=== PATIENT | female | born 1955 | race Caucasian/White ===

== ENCOUNTER → 2017-02-08 | Outpatient (CLI) | payer OTHER ==
[2017-02-08 15:18] LABS: ABSOLUTE BASOPHILS # (AUTO) 0.1 10^3/uL (0.0-0.2); ABSOLUTE EOSINOPHILS # (AUTO) 0.1 10^3/uL (0.0-0.6); ABSOLUTE LYMPHOCYTES (AUTO) 3.2 10^3/uL (0.5-4.7); ABSOLUTE MONOCYTES (AUTO) 0.7 10^3/uL (0.1-1.4); ABSOLUTE NEUT (AUTO) 9.5 10^3/uL (1.7-8.2); BASOPHILS % (AUTO) 0.7 % (0-2); EOSINOPHILS % (AUTO) 0.8 % (0-6); HEMOGLOBIN 14.1 g/dL (12.0-15.5); HGB HCT DIFFERENCE 2.3; LYMPHOCYTES % (AUTO) 23.2 % (13-45); MEAN CORPUSCULAR HEMOGLOBIN 31.8 pg (27.0-33.4); MEAN CORPUSCULAR HGB CONC 35.1 g/dL (32.0-36.0); MEAN CORPUSCULAR VOLUME 91 fl (80-97); RED BLOOD COUNT 4.42 10^6/uL (3.72-5.28); RED CELL DISTRIBUTION WIDTH 13.9 % (11.5-14.0); SEGMENTED NEUTROPHILS % (AUTO) 70.3 % (42-78); WHITE BLOOD COUNT 13.6 10^3/uL (4.0-10.5)
== END ==
LOC: OD 14:33
PROVIDERS: ATTEND Family Medicine
DX: D72.829 Elevated white blood cell count, unspecified (principal); Z01.818 Encounter for other preprocedural examination
CPT/HCPCS: 36415; 71020; 85025

== ENCOUNTER 2017-02-14 06:40 | Inpatient (IN) | payer OTHER ==
[2017-02-03 13:32] LABS: HEMATOCRIT 39.9 % (36.0-47.0); HGB HCT DIFFERENCE 2.1; MEAN CORPUSCULAR HEMOGLOBIN 31.4 pg (27.0-33.4); MEAN CORPUSCULAR HGB CONC 35.1 g/dL (32.0-36.0); MEAN CORPUSCULAR VOLUME 90 fl (80-97); RED BLOOD COUNT 4.46 10^6/uL (3.72-5.28); RED CELL DISTRIBUTION WIDTH 13.5 % (11.5-14.0); WHITE BLOOD COUNT 13.5 10^3/uL (4.0-10.5)
[2017-02-03 13:38] LABS: AMORPHOUS SEDIMENT,URINE TRACE /HPF; APPEARANCE,URINE SLIGHTLY-CLOUDY; BILIRUBIN,URINE NEGATIVE (NEGATIVE); GLUCOSE, URINE NEGATIVE (NEGATIVE); KETONES,URINE NEGATIVE (NEGATIVE); LEUKOCYTE ESTERASE,URINE NEGATIVE (NEGATIVE); NITRITE,URINE NEGATIVE (NEGATIVE); PROTEIN,URINE NEGATIVE (NEGATIVE); URINE SPECIFIC GRAVITY 1.012; UROBILINOGEN,URINE NEGATIVE mg/dL (<2.0)
[2017-02-03 13:50] LABS: BLOOD UREA NITROGEN 24 mg/dL (7-20); CALCIUM 9.8 mg/dL (8.4-10.2); CREATININE RESULT 0.81 mg/dL (0.52-1.25); GLUCOSE 104 mg/dL (75-110)
[2017-02-03 13:51] LABS: ANION GAP 16 (5-19); CARBON DIOXIDE 25 mmol/L (22-30); CHLORIDE 101 mmol/L (98-107); POTASSIUM 4.1 mmol/L (3.6-5.0); SODIUM 141.6 mmol/L (137-145)
[~2017-02-14 06:40] MED LIST: LACTATED RINGERS 1000 ML IV PRN; LANSOPRAZOLE 15 MG TAB.RAP.DR PO PRN; LIDOCAINE 0.5% INJ-PF (5 MG/ML) 50 ML SDV SUBCUT PRN; OXYCODONE HCL SR 10 MG TABLET PO PRN; SCOPOLAMINE HYDROBROMIDE 1.5 MG PATCH.TD72 TOP PRN; VANCOMYCIN HCL 1,000 MG in DEXTROSE 5%-WATER 250 ML IV PRN
[2017-02-14] MEDS ORDERED: CEFAZOLIN INJ 1 GM VIAL ONE (06:48)
[2017-02-14] MEDS: BUPIVACAINE INJ/PF LIPOSOME/PF 266 MG/20 ML SDV ONE ×2 (07:41→09:48)
[2017-02-14] MEDS: THROMBIN (BOVINE) 5000 UNIT EPITAXIS KIT ONE ×2 (07:43→09:48)
[2017-02-14] MEDS: THROMBIN (BOVINE) TOPICAL 20000 UNIT VIAL ONE ×2 (07:44→09:48)
[2017-02-14] MEDS ORDERED: MIDAZOLAM 2 MG/2 ML INJ ONE (07:52)
[2017-02-14] MEDS ORDERED: PROPOFOL INJ 200 MG/20 ML VIAL IV ONE (07:52)
[2017-02-14] MEDS ORDERED: TRANEXAMIC ACID INJ/PF 1,000 MG/10 ML SDV IV ONE ×2 (07:52→13:00)
[2017-02-14] MEDS ORDERED: FENTANYL CITRATE INJ/PF 100 MCG/2 ML AMPUL ONE (07:52)
[2017-02-14] MEDS: IBUPROFEN 800 MG/NS 250 ML IV PRN ×4 (09:00→18:00)
[2017-02-14] MEDS ORDERED: MORPHINE SULFATE 10 MG/ML INJ IV PRN ×3 (09:44→10:31)
[2017-02-14] MEDS ORDERED: FENTANYL CITRATE INJ/PF 100 MCG/2 ML AMPUL IV PRN ×3 (09:44)
[2017-02-14] MEDS ORDERED: DIPHENHYDRAMINE HCL 50 MG/ML VIAL IV PRN ×2 (09:44→10:31)
[2017-02-14] MEDS ORDERED: PROMETHAZINE HCL INJ 25 MG/1 ML VIAL IV PRN (09:44)
[2017-02-14] MEDS ORDERED: GABAPENTIN 300 MG CAPSULE PO PRN (10:29)
[2017-02-14] MEDS ORDERED: METAXALONE 800 MG TABLET PO PRN (10:29)
[2017-02-14] MEDS ORDERED: MAG HYDROX/AL HYDROX/SIMETH SUSP 30 ML UDCUP PO PRN (10:31)
[2017-02-14] MEDS ORDERED: MORPHINE SULFATE 10 MG/ML INJ IM PRN (10:31)
[2017-02-14] MEDS ORDERED: ZOLPIDEM TARTRATE 5 MG TABLET PO PRN (10:31)
[2017-02-14] MEDS ORDERED: ONDANSETRON HCL INJ/PF 4 MG/2 ML SDV IV PRN (10:31)
[2017-02-14] MEDS ORDERED: ACETAMINOPHEN 325 MG TABLET PO PRN (10:31)
--- NOTE | 2017-02-14 10:36 | Operative Report ---
Operative Report DATE OF SURGERY: 02/14/17 PREOPERATIVE DIAGNOSIS: Right knee arthritis OPERATION: Right knee arthroplasty SURGEON: MIMI CATALAN ANESTHESIA: Spinal TISSUE REMOVED OR ALTERED: Bone to pathology ESTIMATED BLOOD LOSS: 100 PROCEDURE: Implants used: Femur: Abbiiker hallielon #6 CR femur Tibia:, 5 tibia Tibial liner:, 9 mm CS insert Patella:, 35 mm oval patella Procedure with the patient supine on the operating table the right the limb is prepped and draped in a sterile fashion. The limb was elevated for exsanguination and the tourniquet inflated to 280 torr. A standard midline median parapatellar approach the knee is taken. Access is gained to the femoral canal through the intercondylar notch. Intramedullary alignment instrumentation used to resect 10 mm of distal femur in 5 of valgus. Sizing guide indicated a size C6 femur. Appropriate cutting jig is then used to fashion anterior posterior and chamfer cuts. A trial reduction femurs performed and this is judged to be adequate. Attention was next turned to the tibia. Using an extra medullary alignment system 9 millimeters was resected off the lateral tibial plateau. This is sized to a size 5 tibia. A trial reduction was now performed with a 6 femur and a. 5 tibia using a 9 millimeters spacer. It is full extension and central patellofemoral tracking. The articular surface the patella was next resected using an oscillating saw. All trial implants were removed. Polymethylmethacrylate is mixed and used to cement the above implants in place. On adequate curing the cement excess cement was removed the tourniquet was deflated hemostasis obtained the wound is then closed in layers using interrupted Vicryl followed by kirti. A sterile compressive dressing was applied and the patient returned to recovery room in satisfactory condition.
[2017-02-14] MEDS ORDERED: INSULIN LISPRO 100 UNIT/ML 3 ML VIAL SUBCUT PRN (11:34)
[2017-02-14] MEDS ORDERED: GLUCAGON,HUMAN RECOMB 1 MG INJ IM PRN (11:34)
[2017-02-14] MEDS ORDERED: DEXTROSE 50%-WATER SYRINGE 12.5 GM/25 ML DOSE IV PRN (11:34)
[2017-02-14] MEDS ORDERED: DEXTROSE 40% GEL 15 GM TUBE X 2 PO PRN (11:34)
[2017-02-14] MEDS ORDERED: DEXTROSE 50%-WATER SYRINGE 25 GM/50 ML DOSE IV PRN (11:34)
[2017-02-14] MEDS ORDERED: DEXTROSE 40% GEL 15 GM TUBE PO PRN (11:34)
[2017-02-14] MEDS ORDERED: PHENYLEPHRINE HCL INJ/PF 10 MG/1 ML SDV ONE (11:51)
[2017-02-14] MEDS ORDERED: LIDOCAINE 2% INJ-PF (20 MG/ML) 10 ML AMPUL ONE (11:51)
[2017-02-14] MEDS: OXYCODONE HCL IR 5 MG TABLET PO PRN (15:08)
[2017-02-14] MEDS: GLYCOPYRROLATE 1 MG TABLET PO SCH (16:08)
[2017-02-14] MEDS: MORPHINE SULFATE 10 MG/ML INJ IV PRN ×3 (16:08→23:09)
[2017-02-14] MEDS: METFORMIN HCL 500 MG TABLET PO SCH (16:08)
[2017-02-14] MEDS: SENNOSIDES/DOCUSATE 8.6-50 MG 1 EACH TABLET PO SCH (17:53)
[2017-02-14] MEDS ORDERED: IBUPROFEN 800 MG in NORMAL SALINE 250 ML IV SCH (18:00)
[2017-02-14] MEDS ORDERED: LORCASERIN HCL 10 MG PO SCH (18:00)
[2017-02-14] MEDS: IBUPROFEN 800 MG in NORMAL SALINE 250 ML IV SCH (19:37)
[2017-02-14] MEDS ORDERED: VANCOMYCIN HCL 1,000 MG in DEXTROSE 5%-WATER 250 ML IV ONE (22:00)
[2017-02-14] MEDS: OXYCODONE HCL SR 10 MG TABLET PO SCH (23:08)
[2017-02-14] MEDS: RIVAROXABAN 10 MG TABLET PO SCH (23:08)
[2017-02-15] MEDS: IBUPROFEN 800 MG in NORMAL SALINE 250 ML IV SCH ×3 (02:00→17:02)
[2017-02-15] MEDS: OXYCODONE HCL IR 5 MG TABLET PO PRN ×3 (02:11→16:59)
[2017-02-15] MEDS: LEVOTHYROXINE SODIUM 0.05 MG TABLET PO SCH (05:29)
[2017-02-15] MEDS: LANSOPRAZOLE 30 MG TAB.RAP.DR PO SCH (05:30)
[2017-02-15 05:37] LABS: HEMATOCRIT 32.4 % (36.0-47.0); HEMOGLOBIN 11.6 g/dL (12.0-15.5); HGB HCT DIFFERENCE 2.4; MEAN CORPUSCULAR HEMOGLOBIN 32.3 pg (27.0-33.4); MEAN CORPUSCULAR HGB CONC 35.9 g/dL (32.0-36.0); MEAN CORPUSCULAR VOLUME 90 fl (80-97); RED BLOOD COUNT 3.61 10^6/uL (3.72-5.28); RED CELL DISTRIBUTION WIDTH 14.3 % (11.5-14.0); WHITE BLOOD COUNT 10.5 10^3/uL (4.0-10.5)
[2017-02-15 05:39] LABS: ANION GAP 7 (5-19); BLOOD UREA NITROGEN 12 mg/dL (7-20); CALCIUM 8.3 mg/dL (8.4-10.2); CARBON DIOXIDE 25 mmol/L (22-30); CHLORIDE 99 mmol/L (98-107); CREATININE RESULT 0.63 mg/dL (0.52-1.25); GLUCOSE 140 mg/dL (75-110); SODIUM 131.2 mmol/L (137-145)
--- NOTE | 2017-02-15 06:51 | PDOC PROGRESS REPORT ---
Subjective Progress Note for:: 02/15/17 Subjective:: Patient complaining of nausea Physical Exam Vital Signs: Temp Pulse Resp BP Pulse Ox 37.3 C 78 17 141/60 H 97 02/15/17 04:00 02/15/17 04:00 02/15/17 04:00 02/15/17 04:00 02/15/17 04:00 Intake & Output 02/13/17 02/14/17 02/15/17 06:59 06:59 06:59 Intake Total 8128 Output Total 4140 Balance 3988 Weight 87.7 kg General appearance: PRESENT: no acute distress Head exam: PRESENT: normocephalic Eye exam: PRESENT: EOMI Respiratory exam: PRESENT: unlabored Cardiovascular exam: PRESENT: RRR Vascular exam: PRESENT: normal capillary refill GI/Abdominal exam: PRESENT: soft Rectal exam: PRESENT: deferred Extremities exam: PRESENT: other - Lower extremity dressing clean dry and intact. Distal neurovascular examinations intact. Neurological exam: PRESENT: alert, awake, oriented to person, oriented to place , oriented to time, oriented to situation. ABSENT: motor sensory deficit Psychiatric exam: PRESENT: appropriate affect, normal mood. ABSENT: homicidal ideation, suicidal ideation Skin exam: PRESENT: dry, intact, warm. ABSENT: cyanosis, rash Results Laboratory Results: 02/15/17 05:00 02/15/17 05:00 02/15/17 02/15/17 05:00 05:00 WBC 10.5 RBC 3.61 L Hgb 11.6 L Hct 32.4 L MCV 90 MCH 32.3 MCHC 35.9 RDW 14.3 H Plt Count 253 Sodium 131.2 L Potassium 4.0 Chloride 99 Carbon Dioxide 25 Anion Gap 7 BUN 12 Creatinine 0.63 Est GFR ( Amer) > 60 Est GFR (Non-Af Amer) > 60 Glucose 140 H Calcium 8.3 L Impressions: Knee X-Ray 02/14/17 10:32 IMPRESSION: Postoperative right knee. Density posterior to the knee raises the possibility of calcification or artifact. See above. Status: Imported from PACS Assessment & Plan - Diagnosis (1) Arthritis of right knee Is this a current diagnosis for this admission?: YesPlan: 61-year-old white female postop day 1 from right knee arthroplasty. She's doing as well as could be expected. Hematocrit remains above 32%. Blood glucose is buried between 117 and 137. Patient ambulated 30 feet with a rolling walker yesterday. - Time Time Spent with patient: 15-24 minutes Anticipated discharge: Home with Homehealth Within: within 24 hours
[2017-02-15] MEDS ORDERED: POLYETHYLENE GLYCOL 1 GM MC SCH (08:00)
[2017-02-15] MEDS: METFORMIN HCL 500 MG TABLET PO SCH ×2 (08:30→17:00)
[2017-02-15] MEDS: ONDANSETRON 4 MG TAB.RAPDIS PO PRN ×2 (08:30→16:57)
[2017-02-15] MEDS: POLYETHYLENE GLYCOL 3350 POWDER 17 GM/1 PACKET PO SCH (08:31)
[2017-02-15] MEDS: GLYCOPYRROLATE 1 MG TABLET PO SCH ×3 (08:31→17:00)
[2017-02-15] MEDS: SENNOSIDES/DOCUSATE 8.6-50 MG 1 EACH TABLET PO SCH ×2 (10:23→17:00)
[2017-02-15] MEDS: PRENATAL VITAMIN W-O CA NO5/FE FUMARATE/FA CAPSULE PO SCH (10:23)
[2017-02-15] MEDS: OXYCODONE HCL SR 10 MG TABLET PO SCH ×2 (10:24→21:35)
[2017-02-15] MEDS: THYROID (PORK) 60 MG TABLET PO SCH (11:01)
[2017-02-15] MEDS ORDERED: TRANEXAMIC ACID INJ/PF 1,000 MG/10 ML SDV IV ONE (13:00)
[2017-02-15] MEDS: RIVAROXABAN 10 MG TABLET PO SCH (21:35)
[2017-02-16] MEDS: IBUPROFEN 800 MG in NORMAL SALINE 250 ML IV SCH ×2 (01:24→10:25)
[2017-02-16] MEDS: OXYCODONE HCL IR 5 MG TABLET PO PRN (03:48)
[2017-02-16] MEDS: LANSOPRAZOLE 30 MG TAB.RAP.DR PO SCH (05:07)
[2017-02-16] MEDS: LEVOTHYROXINE SODIUM 0.05 MG TABLET PO SCH (05:07)
[2017-02-16 07:05] LABS: HEMOGLOBIN 11.7 g/dL (12.0-15.5); HGB HCT DIFFERENCE 3.1; MEAN CORPUSCULAR HEMOGLOBIN 32.9 pg (27.0-33.4); MEAN CORPUSCULAR HGB CONC 36.4 g/dL (32.0-36.0); MEAN CORPUSCULAR VOLUME 90 fl (80-97); RED BLOOD COUNT 3.55 10^6/uL (3.72-5.28); RED CELL DISTRIBUTION WIDTH 14.6 % (11.5-14.0); WHITE BLOOD COUNT 11.6 10^3/uL (4.0-10.5)
--- NOTE | 2017-02-16 07:21 | PDOC DISCHARGE SUMMARY ---
General - Admit/Disc Date/PCP Admission Date/Primary Care Provider: 02/14/17 06:40 HÉCTOR RUBIN MD Discharge Date: 02/16/17 - Discharge Diagnosis (1) Arthritis of right knee Is this a current diagnosis for this admission?: YesSummary: Patient's a 61-year-old white female who is with progressive right knee pain and functional disability secondary osteoarthritis. He is admitted for elective right knee arthroplasty. - Additional Information Resuscitation Status: Full Code Discharge Diet: As Tolerated, Regular Discharge Activity: Balance Activity w/Rest, No Driving, No tub bath Home Medications: Gabapentin [Neurontin 300 mg Capsule] 300 mg PO ASDIR PRN 01/31/17 Glycopyrrolate 1 mg PO TID 01/31/17 Levothyroxine Sodium [Synthroid] 50 mcg PO QAM 01/31/17 Lorcaserin HCl [Belviq] 10 mg PO BID 01/31/17 Metaxalone 800 mg PO DAILY PRN 01/31/17 Metformin HCl [Glucophage] 500 mg PO BID 01/31/17 Omeprazole 40 mg PO QAM 01/31/17 Polyethylene Glycol [Polyox Wsr-301] 1 gm MC QAM 01/31/17 Thyroid (Pork) [[place] Thyroid 60 mg Tablet] 60 mg PO QAM 01/31/17 Tramadol HCl 50 mg PO ASDIR PRN 01/31/17 Ubidecarenone [Coq-10] 100 mg PO QAM 01/31/17 Vitamin E 1,000 unit PO QAM 01/31/17 Oxycodone HCl [Oxy-Ir 5 mg Tablet] 5 mg PO Q6HP PRN #0 tablet 02/16/17 Rivaroxaban [Xarelto 10 mg Tablet] 10 mg PO QHS #0 tablet 02/16/17 History of Present Illness History of Present Illness: ROBERTO ESCOTO is a 61 year old female progressive right knee pain and dysfunction secondary osteoarthritis. She is admitted for elective right knee arthroplasty. Hospital Course Hospital Course: Patient submitted to the operating room where she undergoes an incompetent right knee arthroplasty. She's returned to floor in satisfactory condition. Initially the some problems with pain control but these seem to resolve of the first 12 hours. She then makes excellent progress with physical therapy. Physical Exam Vital Signs: Temp Pulse Resp BP Pulse Ox 37.8 C 83 19 124/55 L 98 02/15/17 23:17 02/15/17 23:17 02/15/17 23:17 02/15/17 23:17 02/15/17 23:17 Intake & Output 02/15/17 02/16/17 02/17/17 06:59 06:59 06:59 Intake Total 8128 1774 Output Total 4140 534 Balance 3988 1240 Weight 87.7 kg 88.1 kg General appearance: PRESENT: no acute distress Head exam: PRESENT: normocephalic Respiratory exam: PRESENT: unlabored Cardiovascular exam: PRESENT: RRR Pulses: PRESENT: +1 pedal pulses bilateral Vascular exam: PRESENT: normal capillary refill GI/Abdominal exam: PRESENT: soft Rectal exam: PRESENT: deferred Extremities exam: PRESENT: other - Right lower extremity derrick dressing is clean dry and intact. There is modest edema. Distal neurovascular examinations intact. Neurological exam: PRESENT: alert, awake, oriented to person, oriented to place , oriented to time, oriented to situation. ABSENT: motor sensory deficit Psychiatric exam: PRESENT: appropriate affect, normal mood. ABSENT: homicidal ideation, suicidal ideation Skin exam: PRESENT: dry, intact, warm. ABSENT: cyanosis, rash Results Laboratory Results: 02/15/17 05:00 Impressions: Knee X-Ray 02/14/17 10:32 IMPRESSION: Postoperative right knee. Density posterior to the knee raises the possibility of calcification or artifact. See above. Status: Imported from PACS Plan Discharge Plan: Patient be discharged home with [facility] outpatient physical therapy. Derrick dressing can be changed on postop day 7 either by the visiting nurse service or by visiting to the office of [facility] for surgery. Follow-up will be with Dr. Johnson in the [facility] for surgeon 2 weeks for staple removal.
[2017-02-16] MEDS: POLYETHYLENE GLYCOL 3350 POWDER 17 GM/1 PACKET PO SCH (08:06)
[2017-02-16] MEDS: METFORMIN HCL 500 MG TABLET PO SCH (08:06)
[2017-02-16] MEDS: GLYCOPYRROLATE 1 MG TABLET PO SCH (08:08)
[2017-02-16] MEDS: PRENATAL VITAMIN W-O CA NO5/FE FUMARATE/FA CAPSULE PO SCH (10:21)
[2017-02-16] MEDS: THYROID (PORK) 60 MG TABLET PO SCH (10:21)
[2017-02-16] MEDS: OXYCODONE HCL SR 10 MG TABLET PO SCH (10:21)
[2017-02-16] MEDS: SENNOSIDES/DOCUSATE 8.6-50 MG 1 EACH TABLET PO SCH (10:22)
[2017-02-16] MEDS: ONDANSETRON 4 MG TAB.RAPDIS PO PRN (10:23)
[2017-02-16 12:43] VITALS: BP 140/69
== END 2017-02-16 13:09 | disposition home health service (06) | DRG 470 ==
LOC: INOR 06:40 → UNDOADMIN 06:40 → INOR 10:31 → 4S 13:07
PROVIDERS: ADMIT Orthopaedic Surgery; ATTEND Orthopaedic Surgery
PROC: 0SRC0J9 Replacement of Right Knee Joint with Synthetic Substitute, Cemented, Open Approach (ICD-10-PCS; principal; 2017-02-14 08:45)
DX: M17.11 Unilateral primary osteoarthritis, right knee (principal); E66.9 Obesity, unspecified; K21.9 Gastro-esophageal reflux disease without esophagitis; E06.3 Autoimmune thyroiditis; R73.03 Prediabetes; E78.5 Hyperlipidemia, unspecified; M41.9 Scoliosis, unspecified; Z90.710 Acquired absence of both cervix and uterus; Z85.42 Personal history of malignant neoplasm of other parts of uterus; Z79.84 Long term (current) use of oral hypoglycemic drugs; Z68.37 Body mass index [BMI] 37.0-37.9, adult; Z79.899 Other long term (current) drug therapy; Z82.49 Family history of ischemic heart disease and other diseases of the circulatory system; Z83.3 Family history of diabetes mellitus
CPT/HCPCS: 01402; 36415; 80048; 81001; 82962; 85027; 88305; 88311; 94799; C1877; C2625; C9290; J0690; J1741; J2250; J2270; J2370; J2704; J3010; J3370; J3490; J7050; J7060; S0119

== ENCOUNTER 2017-09-19 07:30 | Inpatient (IN) | payer OTHER ==
[2017-11-07] MEDS ORDERED: LIDOCAINE 0.5% INJ-PF (5 MG/ML) 50 ML SDV SUBCUT PRN (05:00)
[2017-11-07] MEDS ORDERED: VANCOMYCIN HCL 1,000 MG in DEXTROSE 5%-WATER 250 ML IV PRN (05:00)
[2017-11-07] MEDS ORDERED: LACTATED RINGERS 1000 ML IV PRN (05:00)
[2017-11-07] MEDS ORDERED: CEFAZOLIN INJ 1 GM VIAL IV PRN (05:00)
[2017-11-07] MEDS ORDERED: IBUPROFEN 800 MG in NORMAL SALINE 250 ML IV PRN (05:00)
[2017-11-07] MEDS ORDERED: OXYCODONE HCL SR 10 MG TABLET PO PRN (05:00)
[2017-11-07] MEDS ORDERED: LANSOPRAZOLE 15 MG TAB.RAP.DR PO PRN (05:00)
[2017-11-07] MEDS ORDERED: BUPIVACAINE INJ/PF LIPOSOME/PF 266 MG/20 ML SDV INJ PRN (05:00)
[2017-11-07] MEDS ORDERED: BUPIVACAINE INJ/PF LIPOSOME/PF 266 MG/20 ML SDV ONE (06:41)
[2017-11-07] MEDS ORDERED: THROMBIN (BOVINE) TOPICAL 20000 UNIT VIAL ONE (06:41)
[2017-11-07] MEDS ORDERED: THROMBIN (BOVINE) 5000 UNIT EPITAXIS KIT ONE (06:41)
[2017-11-07] MEDS ORDERED: FENTANYL CITRATE INJ/PF 100 MCG/2 ML AMPUL ONE ×2 (07:04)
[2017-11-07] MEDS ORDERED: TRANEXAMIC ACID INJ/PF 1,000 MG/10 ML SDV IV ONE ×2 (07:05→11:00)
[2017-11-07] MEDS ORDERED: MIDAZOLAM 2 MG/2 ML INJ ONE (07:05)
[2017-11-07] MEDS ORDERED: EPHEDRINE SULFATE INJ 50 MG/1 ML AMPULE ONE (07:05)
[2017-11-07] MEDS ORDERED: ONDANSETRON HCL INJ/PF 4 MG/2 ML SDV ONE (07:05)
[2017-11-07] MEDS ORDERED: ACETAMINOPHEN 0 ML IV ONE (07:05)
[2017-11-07] MEDS ORDERED: PROPOFOL INJ 200 MG/20 ML VIAL IV ONE (07:05)
[2017-11-07] MEDS ORDERED: PROMETHAZINE HCL INJ 25 MG/1 ML VIAL IV PRN (07:44)
[2017-11-07] MEDS ORDERED: DIPHENHYDRAMINE HCL 50 MG/ML VIAL IV PRN ×2 (07:44→09:55)
[2017-11-07] MEDS ORDERED: FENTANYL CITRATE INJ/PF 100 MCG/2 ML AMPUL IV PRN ×3 (07:44)
[2017-11-07] MEDS ORDERED: MEPERIDINE HCL/PF INJ 25 MG/1 ML DISP.SYRIN IV PRN (07:44)
--- NOTE | 2017-11-07 08:27 | Operative Report ---
Operative Report DATE OF SURGERY: 11/07/17 PREOPERATIVE DIAGNOSIS: Left knee arthritis OPERATION: Left knee arthroplasty SURGEON: MIMI CATALAN 1ST MANAGER CONTROL: ELOISA MANNING ANESTHESIA: Spinal TISSUE REMOVED OR ALTERED: Bone to pathology ESTIMATED BLOOD LOSS: 100 PROCEDURE: Implants used: Femur: Sean triathlon #5 CR femur Tibia: 4 tibia Tibial liner: 9 mm CS insert Patella: A 35 mm oval patella Procedure with the patient supine on the operating table the left the limb is prepped and draped in a sterile fashion. The limb was elevated for exsanguination and the tourniquet inflated to 280 torr. A standard midline median parapatellar approach the knee is taken. Access is gained to the femoral canal through the intercondylar notch. Intramedullary alignment instrumentation used to resect 10 mm of distal femur in 5 of valgus. Sizing guide indicated a size 5 femur. Appropriate cutting jig is then used to fashion anterior posterior and chamfer cuts. A trial reduction femurs performed and this is judged to be adequate. Attention was next turned to the tibia. Using an extra medullary alignment system 9 millimeters was resected off the lateral tibial plateau. This is sized to a size 4 tibia. A trial reduction was now performed with a 5 femur and a for tibia using a 9 millimeters spacer. It is full extension and central patellofemoral tracking. The articular surface the patella was next resected using an oscillating saw. All trial implants were removed. Polymethylmethacrylate is mixed and used to cement the above implants in place. On adequate curing the cement excess cement was removed the tourniquet was deflated hemostasis obtained the wound is then closed in layers using interrupted Vicryl followed by kirti. A sterile compressive dressing was applied and the patient returned to recovery room in satisfactory condition.
--- NOTE | 2017-11-07 09:51 | RADIOLOGY REPORT (SQ) ---
EXAM DESCRIPTION: KNEE LEFT 2 VIEWS COMPLETED DATE/TIME: 11/07/2017 9:25 am REASON FOR STUDY: Total Knee M17.12 UNILATERAL PRIMARY OSTEOARTHRITIS, LEFT KNEE COMPARISON: None. NUMBER OF VIEWS: Two views, portable technique TECHNIQUE: Digital radiographic images of the left knee post-procedure. LIMITATIONS: None. FINDINGS: BONES: No worrisome or unexpected findings post-procedure. DEVICE: Left total knee replacement with patellar resurfacing SOFT TISSUES: No worrisome findings. Expected postoperative soft tissue changes. IMPRESSION: SATISFACTORY POSTOPERATIVE LEFT KNEE. TECHNICAL DOCUMENTATION: JOB ID: [id number] [employer]- All Rights Reserved
[2017-11-07] MEDS ORDERED: GABAPENTIN 300 MG CAPSULE PO PRN (09:54)
[2017-11-07] MEDS ORDERED: MORPHINE SULFATE 10 MG/ML INJ IV PRN ×3 (09:55)
[2017-11-07] MEDS ORDERED: ZOLPIDEM TARTRATE 5 MG TABLET PO PRN (09:55)
[2017-11-07] MEDS ORDERED: ONDANSETRON HCL INJ/PF 4 MG/2 ML SDV IV PRN (09:55)
[2017-11-07] MEDS ORDERED: MORPHINE SULFATE 10 MG/ML INJ IM PRN (09:55)
[2017-11-07] MEDS ORDERED: ONDANSETRON 4 MG TAB.RAPDIS PO PRN (09:55)
[2017-11-07] MEDS ORDERED: ACETAMINOPHEN 325 MG TABLET PO PRN (09:55)
[2017-11-07] MEDS ORDERED: MAG HYDROX/AL HYDROX/SIMETH SUSP 30 ML UDCUP PO PRN (09:55)
[2017-11-07] MEDS ORDERED: LORCASERIN HCL 10 MG PO SCH (10:00)
[2017-11-07] MEDS ORDERED: INFLUENZA ADLT QUAD (36MOS+) 2017-18 VAC 0.5 ML SYR IM PRN (11:20)
[2017-11-07] MEDS ORDERED: ATORVASTATIN CALCIUM 40 MG TABLET PO ONE (12:00)
[2017-11-07] MEDS ORDERED: METAXALONE 800 MG TABLET PO PRN (12:00)
[2017-11-07] MEDS ORDERED: EZETIMIBE 10 MG TABLET PO ONE (12:00)
[2017-11-07] MEDS ORDERED: LANSOPRAZOLE 30 MG TAB.RAP.DR PO ONE (12:00)
[2017-11-07] MEDS: ASPIRIN 81 MG TABLET, ENT COATED PO SCH (12:31)
[2017-11-07] MEDS: OXYCODONE HCL SR 10 MG TABLET PO SCH ×2 (12:32→21:28)
[2017-11-07] MEDS ORDERED: IBUPROFEN 800 MG in NORMAL SALINE 250 ML IV SCH (14:00)
[2017-11-07] MEDS: IBUPROFEN 800 MG in NORMAL SALINE 250 ML IV SCH (14:50)
[2017-11-07] MEDS ORDERED: VITAMIN E (DL, ACETATE) 400 UNIT CAPSULE PO ONE (15:00)
[2017-11-07] MEDS ORDERED: ACETAMINOPHEN 100 ML IV ONE (16:00)
[2017-11-07] MEDS ORDERED: GLYCOPYRROLATE 1 MG TABLET PO SCH (18:00)
[2017-11-07] MEDS: METFORMIN HCL 500 MG TABLET PO SCH (18:23)
[2017-11-07] MEDS ORDERED: RIVAROXABAN 10 MG TABLET PO SCH (22:00)
[2017-11-07] MEDS ORDERED: VANCOMYCIN HCL 1,000 MG in DEXTROSE 5%-WATER 250 ML IV ONE (22:00)
[2017-11-08] MEDS: IBUPROFEN 800 MG in NORMAL SALINE 250 ML IV SCH ×4 (00:02→21:26)
[2017-11-08 05:22] LABS: HEMATOCRIT 32.5 % (36.0-47.0); HEMOGLOBIN 11.5 g/dL (12.0-15.5); MEAN CORPUSCULAR HEMOGLOBIN 32.6 pg (27.0-33.4); MEAN CORPUSCULAR HGB CONC 35.5 g/dL (32.0-36.0); MEAN CORPUSCULAR VOLUME 92 fl (80-97); PLATELET COUNT 262 10^3/uL (150-450); RED BLOOD COUNT 3.54 10^6/uL (3.72-5.28); RED CELL DISTRIBUTION WIDTH 13.2 % (11.5-14.0); WHITE BLOOD COUNT 7.5 10^3/uL (4.0-10.5)
[2017-11-08] MEDS: LANSOPRAZOLE 30 MG TAB.RAP.DR PO SCH (05:36)
[2017-11-08 05:40] LABS: ANION GAP 8 (5-19); BLOOD UREA NITROGEN 11 mg/dL (7-20); CALCIUM 8.9 mg/dL (8.4-10.2); CARBON DIOXIDE 28 mmol/L (22-30); CHLORIDE 103 mmol/L (98-107); GLUCOSE 163 mg/dL (75-110); POTASSIUM 3.7 mmol/L (3.6-5.0); SODIUM 139.2 mmol/L (137-145)
[2017-11-08] MEDS ORDERED: LEVOTHYROXINE SODIUM 0.05 MG TABLET PO SCH ×2 (06:00→08:00)
--- NOTE | 2017-11-08 06:45 | PDOC PROGRESS REPORT ---
Subjective Progress Note for:: 11/08/17 Subjective:: 62-year-old white female one day status post total left knee arthroplasty. Patient lying recumbent in hospital bed this morning notes she was comfortable overnight. No other complaints of pain. Reason For Visit: LEFT KNEE ARTHRITIS Physical Exam Vital Signs: Temp Pulse Resp BP Pulse Ox 37.1 C 85 14 123/69 96 11/08/17 03:48 11/08/17 03:48 11/08/17 03:48 11/08/17 03:48 11/08/17 03:48 Intake & Output 11/06/17 11/07/17 11/08/17 06:59 06:59 06:59 Intake Total 0 4092 Output Total 2000 Balance 0 2092 Weight 80.7 kg General appearance: PRESENT: no acute distress, well-developed, well-nourished Head exam: PRESENT: atraumatic, normocephalic Respiratory exam: PRESENT: unlabored Pulses: PRESENT: normal dorsalis pedis pul, +2 pedal pulses bilateral Vascular exam: PRESENT: normal capillary refill Additional comments: Patient lying recumbent in hospital bed with bilateral lower extremities in full extension with slight contracture of left knee. Patient's postoperative compression dressing is in place and is clean dry and intact. This is left in place. She has minimal pedal edema and brisk capillary refill to toes on bilateral lower extremities. Her distal neurovascular exam is intact. Musculoskeletal exam: PRESENT: ambulatory Additional comments: Patient is made progress of physical therapy ambulating total of 40 feet postoperatively. Patient did have lightheadedness after ambulating with physical therapy. Hopefully this has resolved and she can continue to work with physical therapy to improve distance of ambulation and improve strength range of motion of left lower extremity. Neurological exam: PRESENT: alert, awake, oriented to person, oriented to place , oriented to time, oriented to situation, CN II-XII grossly intact. ABSENT: motor sensory deficit Psychiatric exam: PRESENT: appropriate affect, normal mood. ABSENT: homicidal ideation, suicidal ideation Skin exam: PRESENT: dry, intact, warm. ABSENT: cyanosis, rash Results Laboratory Results: 11/08/17 05:07 11/08/17 05:07 11/08/17 11/08/17 05:07 05:07 WBC 7.5 RBC 3.54 L Hgb 11.5 L Hct 32.5 L MCV 92 MCH 32.6 MCHC 35.5 RDW 13.2 Plt Count 262 Sodium 139.2 Potassium 3.7 Chloride 103 Carbon Dioxide 28 Anion Gap 8 BUN 11 Creatinine 0.76 Est GFR ( Amer) > 60 Est GFR (Non-Af Amer) > 60 Glucose 163 H Calcium 8.9 Impressions: Knee X-Ray 11/07/17 00:00 IMPRESSION: SATISFACTORY POSTOPERATIVE LEFT KNEE. Assessment & Plan - Diagnosis (1) Arthritis of knee, left Is this a current diagnosis for this admission?: Yes - Plan Summary Plan Summary: 62-year-old white female one day status post total left knee arthroplasty. Patient is made strong progress with physical therapy ambulating maximum of 40 feet independently. She will continue to work with physical therapy to improve distance of ambulation and strength range of motion of left knee. Pending her progress of physical therapy she will likely be discharged later this week. Her pain is well controlled with oral analgesic medications.
[2017-11-08] MEDS: METFORMIN HCL 500 MG TABLET PO SCH ×2 (07:55→17:10)
[2017-11-08] MEDS: OXYCODONE HCL IR 5 MG TABLET PO PRN ×2 (07:55→17:09)
[2017-11-08] MEDS ORDERED: (PENDING PHARMACY ID) (Vitamin E [Vitamin E] 1,000 UNIT) PO SCH (08:00)
[2017-11-08] MEDS ORDERED: POLYETHYLENE GLYCOL 1 GM MC SCH (08:00)
[2017-11-08] MEDS ORDERED: (PENDING PHARMACY ID) (Ubidecarenone [Coq-10] 100 MG) PO SCH (08:00)
[2017-11-08] MEDS: OXYCODONE HCL SR 10 MG TABLET PO SCH ×2 (09:41→21:27)
[2017-11-08] MEDS: ASPIRIN 81 MG TABLET, ENT COATED PO SCH (09:41)
[2017-11-08] MEDS: ATORVASTATIN CALCIUM 40 MG TABLET PO SCH (09:42)
[2017-11-08] MEDS: POLYETHYLENE GLYCOL 3350 POWDER 17 GM/1 PACKET PO SCH (09:43)
[2017-11-08] MEDS: EZETIMIBE 10 MG TABLET PO SCH (09:43)
[2017-11-08] MEDS ORDERED: VITAMIN E (DL, ACETATE) 400 UNIT CAPSULE PO SCH (10:00)
[2017-11-09] MEDS: IBUPROFEN 800 MG in NORMAL SALINE 250 ML IV SCH (05:22)
[2017-11-09] MEDS: LANSOPRAZOLE 30 MG TAB.RAP.DR PO SCH (05:22)
[2017-11-09] MEDS: OXYCODONE HCL IR 5 MG TABLET PO PRN (05:22)
[2017-11-09 06:01] LABS: HEMATOCRIT 32.6 % (36.0-47.0); HEMOGLOBIN 11.4 g/dL (12.0-15.5); MEAN CORPUSCULAR HEMOGLOBIN 32.6 pg (27.0-33.4); MEAN CORPUSCULAR VOLUME 93 fl (80-97); PLATELET COUNT 258 10^3/uL (150-450); RED CELL DISTRIBUTION WIDTH 13.6 % (11.5-14.0); WHITE BLOOD COUNT 7.2 10^3/uL (4.0-10.5)
--- NOTE | 2017-11-09 07:13 | PDOC DISCHARGE SUMMARY ---
General - Admit/Disc Date/PCP Admission Date/Primary Care Provider: HÉCTOR RUBIN MD Discharge Date: 11/09/17 - Discharge Diagnosis (1) Arthritis of knee, left Is this a current diagnosis for this admission?: Yes - Additional Information Resuscitation Status: Full Code Discharge Diet: As Tolerated, Regular Discharge Activity: Activity As Tolerated, No Driving, No tub bath, Walk Frequently Home Medications: Atorvastatin Calcium [Lipitor 40 mg Tablet] 40 mg PO DAILY 11/07/17 Ezetimibe [Zetia 10 mg Tablet] 10 mg PO DAILY 11/07/17 Metaxalone [Skelaxin 800 mg Tablet] 800 mg PO DAILYP PRN 11/07/17 Metformin HCl [Glucophage 500 mg Tablet] 500 mg PO BID 11/07/17 Omeprazole 40 mg PO QAM 11/07/17 Polyethylene Glycol 3350 [Miralax Powder 17 gm/Packet] 17 gm PO DAILY 11/07/17 Thyroid (Pork) [[place] Thyroid 60 mg Tablet] 60 mg PO QAM 11/07/17 Tramadol HCl [Ultram 50 mg Tablet] 50 mg PO QIDP PRN 11/07/17 Ubidecarenone [Co Q-10] 100 mg PO QAM 11/07/17 History of Present Illness History of Present Illness: ROBERTO ESCOTO is a 62 year old female with history of left knee arthritis admitted for elective total left knee arthroplasty. Hospital Course Hospital Course: 62-year-old white female who was admitted to the OR for elective total left knee arthroplasty. This procedure was uncomplicated and she was returned to postanesthesia care in satisfactory condition. She was then taken to the surgical floor where she was seen by physical therapy to work towards independent ambulation and increase strength and range of motion of left lower extremity. Her pain was managed and controlled by nursing staff and Dr. Johnson. She made progress with physical therapy and relating 150 feet independently. She will be discharged to home today with home physical therapy , home health nursing, wheeled walker, bedside commode. Physical Exam Vital Signs: Temp Pulse Resp BP Pulse Ox 37.1 C 88 16 107/60 97 11/08/17 23:38 11/08/17 23:38 11/08/17 23:38 11/08/17 23:38 11/08/17 23:38 Intake & Output 11/08/17 11/09/17 11/10/17 06:59 06:59 06:59 Intake Total 4092 1637 Output Total 1999 300 Balance 2092 1337 Weight 80.7 kg General appearance: PRESENT: no acute distress, well-developed, well-nourished Head exam: PRESENT: atraumatic, normocephalic Respiratory exam: PRESENT: unlabored Pulses: PRESENT: normal dorsalis pedis pul, +2 pedal pulses bilateral Vascular exam: PRESENT: normal capillary refill Additional comments: Patient lying recumbent in hospital bed this morning and is able to bring herself to a supine position without difficulty. Her postoperative compression dressing is in place and is clean dry and intact. This dressing is removed and OpSite dressing beneath it is clean dry and intact. This is left in place. She has minimal pedal edema and brisk capillary refill to toes on bilateral lower extremities. Leg lengths are equal and distal neurovascular exam is intact. Musculoskeletal exam: PRESENT: ambulatory Additional comments: Patient has made impressive and steady progress of physical therapy ambulating 150 feet independently. She will continue to work with physical therapy in her home to improve strength range of motion and further ambulation on the left lower extremity. Neurological exam: PRESENT: alert, awake, oriented to person, oriented to place , oriented to time, oriented to situation, CN II-XII grossly intact. ABSENT: motor sensory deficit Psychiatric exam: PRESENT: appropriate affect, normal mood. ABSENT: homicidal ideation, suicidal ideation Skin exam: PRESENT: dry, intact, warm. ABSENT: cyanosis, rash Results Laboratory Results: 11/09/17 04:57 11/08/17 05:07 11/09/17 04:57 WBC 7.2 RBC 3.50 L Hgb 11.4 L Hct 32.6 L MCV 93 MCH 32.6 MCHC 35.0 RDW 13.6 Plt Count 258 Impressions: Knee X-Ray 11/07/17 00:00 IMPRESSION: SATISFACTORY POSTOPERATIVE LEFT KNEE. Plan Discharge Plan: 62-year-old white female 2 days status post total left knee arthroplasty. Patient has made good progress with physical therapy and relating 150 feet independently. She will be discharged to home today with home physical therapy , home health nursing, wheeled walker, bedside commode. She will continue to work with home physical therapy to improve strength range of motion of left lower extremity. The visiting nurse service will change her OpSite dressing when they see fit i.e. when it is saturated with selvin blood. She will follow- up with Dr. Johnson and Damien WAGGONER at [facility] surgery 2 weeks postoperatively for reevaluation and staple removal. Time Spent: Less than 30 Minutes
[2017-11-09] MEDS: METFORMIN HCL 500 MG TABLET PO SCH (07:42)
[2017-11-09] MEDS: EZETIMIBE 10 MG TABLET PO SCH (09:04)
[2017-11-09] MEDS: ASPIRIN 81 MG TABLET, ENT COATED PO SCH (09:04)
[2017-11-09] MEDS: ATORVASTATIN CALCIUM 40 MG TABLET PO SCH (09:04)
[2017-11-09] MEDS: POLYETHYLENE GLYCOL 3350 POWDER 17 GM/1 PACKET PO SCH (09:05)
[2017-11-09 09:46] VITALS: BP 152/87
== END 2017-11-09 10:08 | disposition home health service (06) | DRG 470 ==
LOC: UNDOADMIN 11-07 05:18 → OROUT 11-07 05:18 → INOR 11-07 05:18 → EDSTATUS 11-07 07:30 → 4S 11-07 09:55 → OROUT 11-07 09:59 → 4S 11-07 09:59 → OROUT 11-09 10:08 → 4S 11-09 10:08
PROVIDERS: ADMIT Orthopaedic Surgery; ATTEND Orthopaedic Surgery
PROC: 0SRD0J9 Replacement of Left Knee Joint with Synthetic Substitute, Cemented, Open Approach (ICD-10-PCS; principal; 2017-11-07 07:30)
DX: M17.12 Unilateral primary osteoarthritis, left knee (principal); E78.00 Pure hypercholesterolemia, unspecified; R73.03 Prediabetes; E07.9 Disorder of thyroid, unspecified; Z79.84 Long term (current) use of oral hypoglycemic drugs; Z79.899 Other long term (current) drug therapy; Z79.891 Long term (current) use of opiate analgesic; Z85.42 Personal history of malignant neoplasm of other parts of uterus; Z83.3 Family history of diabetes mellitus
CPT/HCPCS: 01402; 36415; 80048; 85027; 88305; 88311; C2625; C9290; J0131; J0690; J1741; J2250; J2270; J2405; J2704; J3010; J3370; J3490; J7050; J7060; S0119

== ENCOUNTER → 2017-10-12 | Outpatient (CLI) | payer OTHER ==
[2017-10-12 11:52] LABS: ABSOLUTE BASOPHILS # (AUTO) 0.1 10^3/uL (0.0-0.2); ABSOLUTE EOSINOPHILS # (AUTO) 0.1 10^3/uL (0.0-0.6); ABSOLUTE LYMPHOCYTES (AUTO) 2.1 10^3/uL (0.5-4.7); ABSOLUTE MONOCYTES (AUTO) 0.4 10^3/uL (0.1-1.4); ABSOLUTE NEUT (AUTO) 4.9 10^3/uL (1.7-8.2); BASOPHILS % (AUTO) 0.7 % (0-2); EOSINOPHILS % (AUTO) 0.8 % (0-6); HEMOGLOBIN 14.7 g/dL (12.0-15.5); HGB HCT DIFFERENCE 3.1; LYMPHOCYTES % (AUTO) 27.7 % (13-45); MEAN CORPUSCULAR HEMOGLOBIN 33.1 pg (27.0-33.4); MEAN CORPUSCULAR HGB CONC 35.9 g/dL (32.0-36.0); MEAN CORPUSCULAR VOLUME 92 fl (80-97); MONOCYTES % (AUTO) 5.6 % (3-13); RED BLOOD COUNT 4.46 10^6/uL (3.72-5.28); RED CELL DISTRIBUTION WIDTH 13.3 % (11.5-14.0); SEGMENTED NEUTROPHILS % (AUTO) 65.2 % (42-78); WHITE BLOOD COUNT 7.5 10^3/uL (4.0-10.5)
[2017-10-12 11:53] LABS: APPEARANCE,URINE SLIGHTLY-CLOUDY; BILIRUBIN,URINE NEGATIVE (NEGATIVE); GLUCOSE, URINE NEGATIVE (NEGATIVE); KETONES,URINE NEGATIVE (NEGATIVE); LEUKOCYTE ESTERASE,URINE NEGATIVE (NEGATIVE); NITRITE,URINE NEGATIVE (NEGATIVE); PROTEIN,URINE NEGATIVE (NEGATIVE); URINE SPECIFIC GRAVITY 1.012; UROBILINOGEN,URINE NEGATIVE mg/dL (<2.0)
[2017-10-12 12:16] LABS: ANION GAP 12 (5-19); BLOOD UREA NITROGEN 18 mg/dL (7-20); CALCIUM 9.9 mg/dL (8.4-10.2); CARBON DIOXIDE 28 mmol/L (22-30); CHLORIDE 103 mmol/L (98-107); CREATININE RESULT 0.97 mg/dL (0.52-1.25); GLUCOSE 105 mg/dL (75-110); POTASSIUM 4.2 mmol/L (3.6-5.0); SODIUM 142.8 mmol/L (137-145)
--- NOTE | 2017-10-12 13:05 | RADIOLOGY REPORT (SQ) ---
EXAM DESCRIPTION: CHEST PA/LATERAL COMPLETED DATE/TIME: 10/12/2017 12:57 pm REASON FOR STUDY: PRE OP COMPARISON: Two-view chest 02/08/2017, 01/07/2017 EXAM PARAMETERS: NUMBER OF VIEWS: two views TECHNIQUE: Digital Frontal and Lateral radiographic views of the chest acquired. RADIATION DOSE: NA LIMITATIONS: none FINDINGS: LUNGS AND PLEURA: No opacities, masses or pneumothorax. No pleural effusion. MEDIASTINUM AND HILAR STRUCTURES: No masses or contour abnormalities. HEART AND VASCULAR STRUCTURES: Heart normal size. No evidence for failure. BONES: No acute findings. HARDWARE: None in the chest. OTHER: No other significant finding. IMPRESSION: NO SIGNIFICANT RADIOGRAPHIC FINDING IN THE CHEST. TECHNICAL DOCUMENTATION: JOB ID: [id number] [employer]- All Rights Reserved
--- NOTE | 2017-10-12 13:55 | EKG REPORT ---
SEVERITY:- NORMAL ECG - SINUS RHYTHM : Confirmed by: Michelle Rose 12-Oct-2017 13:54:31
== END ==
LOC: OD 10:34
PROVIDERS: ATTEND Orthopaedic Surgery
DX: Z01.810 Encounter for preprocedural cardiovascular examination (principal); Z01.812 Encounter for preprocedural laboratory examination; Z01.818 Encounter for other preprocedural examination
CPT/HCPCS: 36415; 71020; 80048; 81001; 83036; 85025; 93005; 93010

== ENCOUNTER → 2019-07-27 | Outpatient (CLI) | payer OTHER ==
--- NOTE | 2019-07-27 15:09 | RADIOLOGY REPORT (SQ) ---
EXAM DESCRIPTION: CT ABD/PELVIS WITH IV ORAL COMPLETED DATE/TIME: 07/27/2019 2:16 pm REASON FOR STUDY: K59.00 CONSTIPATION, UNSPECIFIED K59.00 CONSTIPATION, UNSPECIFIED Z85.42 PERSONA Terrell HISTORY OF MALIGNANT NEOPLASM OF OTH PRT MARYELLEN COMPARISON: 05/27/2016 CT abdomen pelvis TECHNIQUE: CT scan of the abdomen and pelvis performed using helical scanning technique with dynamic intravenous contrast injection. Patient drank oral contrast. Images reviewed with lung, soft tissue , and bone windows. Reconstructed coronal and sagittal MPR images reviewed. Delayed images for evalua tion of the urinary system also acquired. All images stored on PACS. All CT scanners at this facility use dose modulation, iterative reconstruction, and/or weight based d osing when appropriate to reduce radiation dose to as low as reasonably achievable (ALARA). [facility]: Dose Right [facility]: CareDose [facility]: Dose Right [facility]: Teradose 4D [facility]: klinify CONTRAST TYPE AND DOSE: contrast/concentration: Isovue 350.00 mg/ml; Total Contrast Delivered: 96.0 ml; Total Saline Delivered: 71.0 ml RENAL FUNCTION: Creatinine 0.8 RADIATION DOSE: CT Rad equipment meets quality standard of care and radiation dose reduction techniq ues were employed. CTDIvol: 10.2 - 11.6 mGy. DLP: 1066 mGy-cm.. LIMITATIONS: None. FINDINGS: LOWER CHEST: No significant findings. No nodules or infiltrates. LIVER: Normal size. No masses. No dilated ducts. SPLEEN: Normal size. No focal lesions. PANCREAS: No masses. No significant calcifications. No adjacent inflammation or peripancreatic fluid collections. Pancreatic duct not dilated. GALLBLADDER: No identified stones by CT criteria. No inflammatory changes to suggest cholecystitis. ADRENAL GLANDS: No significant masses or asymmetry. RIGHT KIDNEY AND URETER: No solid masses. No significant calcifications. No hydronephrosis or hyd roureter. LEFT KIDNEY AND URETER: No solid masses. No significant calcifications. No hydronephrosis or hydr oureter. AORTA AND VESSELS: No aneurysm. No dissection. Renal arteries, SMA, celiac without stenosis. RETROPERITONEUM: No retroperitoneal adenopathy, hemorrhage or masses. BOWEL AND PERITONEAL CAVITY: No masses or inflammatory changes. No free fluid or peritoneal masses. Patient drank oral contrast. Few descending and sigmoid colon diverticuli without CT signs of acute diverticulitis APPENDIX: Normal. PELVIS: No mass. No free fluid. Normal bladder. Post hysterectomy. No pelvic masses or adenopathy. No free fluid. ABDOMINAL WALL: No masses. No hernias. BONES: No significant or acute findings. OTHER: No other significant finding. IMPRESSION: Post hysterectomy. No CT findings worrisome for recurrent pelvic malignancy. Colonic diverticuli without CT signs of acute diverticulitis. TECHNICAL DOCUMENTATION: JOB ID: [id number] Quality ID # [id number]: Final reports with documentation of one or more dose reduction techniques (e.g., Au tomated exposure control, adjustment of the mA and/or kV according to patient size, use of iterative reconstruction technique) 2010 [employer]- All Rights Reserved Reading location - IP/workstation name: [email or web address]
== END ==
LOC: RAD 13:47
PROVIDERS: ATTEND Family Medicine
DX: K59.00 Constipation, unspecified (principal); Z85.42 Personal history of malignant neoplasm of other parts of uterus
CPT/HCPCS: 74177; 82565